=== PATIENT | female | born 1990 ===

== ENCOUNTER 2018-05-09 15:02 | Emergency (ER) | payer OTHER ==
--- NOTE | 2018-05-09 15:20 | ED PDOC ---
HPI: Abdomen Time Seen by Provider: 05/09/18 15:13 Chief Complaint (Nursing): Abdominal Pain History Per: Patient Onset/Duration Of Symptoms: Other (2 weeks) Current Symptoms Are (Timing): Intermittent Episodes Severity: Mild Location Of Pain/Discomfort: Epigastric Quality Of Discomfort: Burning Associated Symptoms: denies: Fever, Nausea, Vomiting, Diarrhea, Urinary Symptoms Exacerbating Factors: None Alleviating Factors: None Additional Complaint(s): Epigastric burning type pain intermittently x 2 weeks. Denies NVD. No urinary sxs, Denies fever or bloody stool. No improvement with gaviscom or Pepcid Past Medical History Vital Signs: Last Vital Signs Temp 98.2 F 05/09/18 15:05 Pulse 64 05/09/18 15:05 Resp 16 05/09/18 15:05 BP 135/80 05/09/18 15:05 Pulse Ox 96 05/09/18 15:05 - Medical History PMH: No Chronic Diseases - Family History Family History: States: Unknown Family Hx - Home Medications Home Medications: Ambulatory Orders Medication Instructions Recorded Pantoprazole Sodium [Protonix] 40 mg PO DAILY #30 tablet. 05/09/18 - Allergies Allergies/Adverse Reactions: Allergies Allergy/AdvReac Type Severity Reaction Status Date / Time No Known Allergies Allergy Verified 05/09/18 15:05 Review of Systems ROS Statement: Except As Marked, All Systems Reviewed And Found Negative Gastrointestinal: Positive for: Abdominal Pain Physical Exam - Reviewed Nursing Documentation Reviewed: Yes Vital Signs Reviewed: Yes - Physical Exam Appears: Positive for: Non-toxic, No Acute Distress Head Exam: Positive for: ATRAUMATIC, NORMAL INSPECTION, NORMOCEPHALIC Skin: Positive for: Normal Color, Warm, DRY Eye Exam: Positive for: EOMI, Normal appearance, PERRL ENT: Positive for: Normal ENT Inspection Neck: Positive for: Normal, Painless ROM Cardiovascular/Chest: Positive for: Regular Rate, Rhythm Respiratory: Positive for: CNT, Normal Breath Sounds Gastrointestinal/Abdominal: Positive for: Soft, Tenderness (Epigastric and bilat lower quad tenderness). Negative for: Guarding, Rebound Back: Positive for: Normal Inspection. Negative for: L CVA Tenderness, R CVA Tenderness Extremity: Positive for: Normal ROM Neurologic/Psych: Positive for: Alert, Oriented - Laboratory Results Result Diagrams: 05/09/18 15:30 05/09/18 15:30 - ECG O2 Sat by Pulse Oximetry: 96 Disposition - Clinical Impression Clinical Impression: Gastritis - Patient ED Disposition Is Patient to be Admitted: No Counseled Patient/Family Regarding: Studies Performed, Diagnosis, Need For Followup, Rx Given - Disposition Referrals: Chi Peoples MD, PhD [Staff Provider] - Disposition: Routine/Home Disposition Time: 16:57 Condition: FAIR Prescriptions: Pantoprazole Sodium [Protonix] 40 mg PO DAILY #30 tablet.dr Instructions: Gastritis Forms: [employer] (Lao)
[2018-05-09] MEDS ORDERED: Pantoprazole 40 mg EC Tab PO STA (15:38)
[2018-05-09 15:46] LABS: BASO % 0.8 % (0.0-2.0); EOS # 0.1 K/uL (0.0-0.7); EOS % 2.2 % (0.0-4.0); HEMOGLOBIN 12.7 g/dL (12.0-16.0); LYMPH # 2.1 K/uL (1.0-4.3); LYMPH % 39.1 % (20.0-40.0); MEAN CELL VOLUME 84.3 fl (81.0-99.0); MEAN CORPUSCULAR HEMOGLOBIN 27.6 pg (27.0-31.0); MEAN CORPUSCULAR HGB CONC 32.8 g/dL (33.0-37.0); MEAN PLATELET VOLUME 7.9 fl (7.2-11.7); MONO # 0.5 K/uL (0.0-0.8); MONO % 9.2 % (0.0-10.0); NEUT # 2.6 K/uL (1.8-7.0); NEUT % 48.7 % (50.0-75.0); NRBC % 0.1 % (0.0-0.0); RBC 4.6 Mil/uL (3.80-5.20); RED CELL DISTRIBUTION WIDTH 13.5 % (11.5-14.5); WHITE BLOOD COUNT 5.3 K/uL (4.8-10.8)
[2018-05-09] MEDS ORDERED: Pantoprazole 40 mg EC Tab PO ONE (15:52)
[2018-05-09 16:00] LABS: ALB/GLOB RATIO 1.3 (1.0-2.1); ALT/SGPT 24 U/L (9-52); AST/SGOT 26 U/L (14-36); BLOOD UREA NITROGEN 14 mg/dl (7-17); GFR NON-AFRICAN AMERICAN > 60; LIPASE 110 U/L (23-300)
[2018-05-09 17:10] VITALS: BP 120/78; PULSE 70; RESP 19; TEMP 97.7; O2SAT 98
== END 2018-05-09 17:11 | disposition home or self-care (01) ==
LOC: H.ER 15:02
DX: K29.70 Gastritis, unspecified, without bleeding (principal)

== ENCOUNTER 2018-09-18 08:26 | Emergency (ER) | payer OTHER ==
[2018-09-18 08:29] VITALS: BMI 23.2
[2018-09-18 08:30] VITALS: RESP 18; TEMP 98.7; O2SAT 99
[2018-09-18] MEDS ORDERED: Sodium Chloride 0.9% 1,000 ML IV STA (09:10)
--- NOTE | 2018-09-18 09:43 | ED PDOC ---
History of Present Illness History of Present Illness: 28 y/o female with no significant PMHx presents to the ED for evaluation of generalized body aches, onset two weeks. Patient states she initially felt like she had allergies and had taken both Zyrtec and Nyquil with improvement of symptoms. Patient notes symptoms returned two days ago with no relief when using Zyrtec. Patient denies nausea, vomiting and cough. PMD: Non [facility] Provider HPI: Influenza Time Seen by Provider: 09/18/18 09:04 Chief Complaint: Flu-like Symptoms Chief Complaint (Provider): Flu-like Symptoms History Per: Patient Exam Limitations: no limitations Onset/Duration Of Symptoms: Days (x14) Symptoms include: bodyaches Past Medical History Reviewed: Historical Data, Nursing Documentation, Vital Signs Vital Signs: Last Vital Signs Temp 98.7 F 09/18/18 08:29 Pulse 76 09/18/18 08:29 Resp 18 09/18/18 08:29 BP 109/67 09/18/18 08:29 Pulse Ox 99 09/18/18 08:29 - Medical History PMH: No Chronic Diseases - Surgical History Surgical History: No Surg Hx - Family History Family History: States: Unknown Family Hx - Home Medications Home Medications: Ambulatory Orders Medication Instructions Recorded Pantoprazole Sodium [Protonix] 40 mg PO DAILY #30 tablet. 05/09/18 - Allergies Allergies/Adverse Reactions: Allergies Allergy/AdvReac Type Severity Reaction Status Date / Time No Known Allergies Allergy Verified 05/09/18 15:05 Review of Systems ROS Statement: Except As Marked, All Systems Reviewed And Found Negative Constitutional: Positive for: Other (generalzied myalgia) Respiratory: Negative for: Cough Gastrointestinal: Negative for: Nausea, Vomiting Physical Exam - Reviewed Nursing Documentation Reviewed: Yes Vital Signs Reviewed: Yes - Physical Exam Appears: Positive for: Well, No Acute Distress Head Exam: Positive for: ATRAUMATIC, NORMOCEPHALIC Skin: Positive for: Normal Color, Warm, Dry Eye Exam: Positive for: Normal appearance, EOMI, PERRL ENT: Positive for: Normal ENT Inspection Neck: Positive for: Normal, Painless ROM Cardiovascular/Chest: Positive for: Regular Rate, Rhythm. Negative for: Murmur Respiratory: Positive for: Normal Breath Sounds. Negative for: Respiratory Distress Gastrointestinal/Abdominal: Positive for: Normal Exam, Soft. Negative for: Tenderness Extremity: Positive for: Normal ROM Neurological/Psych: Positive for: Awake, Alert, Oriented (x3). Negative for: Motor/Sensory Deficits Medical Decision Making Medical Decision Making: Time: 09 A/P: Workup for allergies vs. viral syndrome -- Basic labs -- Motrin -- Re-assess patient -- BMP -- CBC with Differentials -- Motrin 800 mg PO -- Sodium Chloride IV 1000 mls/hr Scribe Attestation: Documented by Leela Stubbs, acting as a scribe Lg Vásquez MD. Provider Scribe Attestation: All medical record entries made by the Scribe were at my direction and personally dictated by me. I have reviewed the chart and agree that the record accurately reflects my personal performance of the history, physical exam, medical decision making, and the department course for this patient. I have also personally directed, reviewed, and agree with the discharge instructions and disposition. - Laboratory Results Result Diagrams: 09/18/18 10:20 09/18/18 10:20 - ECG O2 Sat by Pulse Oximetry: 99 Disposition - Clinical Impression Clinical Impression: Viral syndrome - Disposition Referrals: [facility] [Outside] Disposition: Routine/Home Disposition Time: 11:11 Condition: IMPROVED Additional Instructions: Take Tylenol or Motrin for fever and/or body aches. Follow up with primary medical doctor. Return to the emergency department if symptoms worsen or if new symptoms develop. Instructions: Viral Syndrome (DC) Forms: [employer] (Guamanian), [employer] ED School/Work Excuse Print Language: CYMRO
[2018-09-18 10:43] LABS: BASO % 0.5 % (0.0-2.0); BLOOD UREA NITROGEN 9 mg/dl (7-17); CALCIUM 9.2 mg/dL (8.4-10.2); EOS # 0.1 K/uL (0.0-0.7); GFR NON-AFRICAN AMERICAN > 60; HEMOGLOBIN 12.5 g/dL (12.0-16.0); LYMPH # 1.3 K/uL (1.0-4.3); LYMPH % 23.2 % (20.0-40.0); MEAN CELL VOLUME 82.1 fl (81.0-99.0); MEAN CORPUSCULAR HEMOGLOBIN 27.5 pg (27.0-31.0); MEAN CORPUSCULAR HGB CONC 33.5 g/dL (33.0-37.0); MONO # 0.6 K/uL (0.0-0.8); MONO % 11.3 % (0.0-10.0); NEUT # 3.4 K/uL (1.8-7.0); NRBC % 0.1 % (0.0-0.0); RBC 4.54 Mil/uL (3.80-5.20); RED CELL DISTRIBUTION WIDTH 13.2 % (11.5-14.5); WHITE BLOOD COUNT 5.4 K/uL (4.8-10.8)
[2018-09-18 12:23] VITALS: BP 110/70; PULSE 78
== END 2018-09-18 12:20 | disposition home or self-care (01) ==
LOC: H.ER 08:26
DX: B34.9 Viral infection, unspecified (principal)
CPT/HCPCS: 80048; 81025; 85025; 99283; J7030